=== PATIENT | male | born 1970 | race Hispanic/Latino ===

== ENCOUNTER → 2018-06-15 | Outpatient (CLI) | payer OTHER ==
[~2018-06-15] MED LIST: ALLO100T PO; ASPI-1197 PO; CARV3.12 PO; CHOL100040 PO; EZET1TAB21 PO; METF-444 PO; NIAC500T7 PO; OLME20TA10 PO
== END | disposition home or self-care (01) ==
LOC: RAH 09:03
PROVIDERS: ATTEND Physical Medicine & Rehabilitation
DX: M51.15 Intervertebral disc disorders with radiculopathy, thoracolumbar region (principal); M48.061 Spinal stenosis, lumbar region without neurogenic claudication
CPT/HCPCS: 72148

== ENCOUNTER → 2018-06-18 | Outpatient (CLI) | payer OTHER | END | disposition home or self-care (01) | LOC: OIH 16:06 | PROVIDERS: ATTEND Family Medicine | DX: I10 Essential (primary) hypertension (principal) | CPT/HCPCS: 71046 ==

== ENCOUNTER → 2018-08-11 | Outpatient (CLI) | payer OTHER | END | disposition home or self-care (01) | LOC: RAH 13:03 | PROVIDERS: ATTEND Physical Medicine & Rehabilitation | DX: M16.12 Unilateral primary osteoarthritis, left hip (principal) | CPT/HCPCS: 73721 ==

== ENCOUNTER → 2019-05-31 | Outpatient (CLI) | payer OTHER ==
[~2019-05-31] MED LIST changes: +GADODIAMIDE 10 MMOL/20 ML VIAL IV ONE
== END | disposition home or self-care (01) ==
LOC: RAH 13:39
PROVIDERS: ATTEND Physical Medicine & Rehabilitation
DX: M48.02 Spinal stenosis, cervical region (principal); M25.78 Osteophyte, vertebrae; M50.11 Cervical disc disorder with radiculopathy, high cervical region; Z98.1 Arthrodesis status
CPT/HCPCS: 72156; A9579

== ENCOUNTER → 2020-11-21 | Outpatient (CLI) | payer OTHER ==
[~2020-11-21] MED LIST changes: -GADODIAMIDE 10 MMOL/20 ML VIAL IV ONE
== END | disposition home or self-care (01) ==
LOC: RAH 14:46
PROVIDERS: ATTEND Physical Medicine & Rehabilitation
DX: M47.814 Spondylosis without myelopathy or radiculopathy, thoracic region (principal); M25.78 Osteophyte, vertebrae; M85.88 Other specified disorders of bone density and structure, other site
CPT/HCPCS: 72040; 72074

== ENCOUNTER → 2021-01-15 | Outpatient (CLI) | payer OTHER | END | disposition home or self-care (01) | LOC: RAH 10:06 | PROVIDERS: ATTEND Physical Medicine & Rehabilitation | DX: R13.10 Dysphagia, unspecified (principal) | CPT/HCPCS: 74230; 92611 ==

== ENCOUNTER → 2021-01-31 | Outpatient (CLI) | payer OTHER ==
[~2021-01-31] MED LIST changes: +GADOTERATE MEGLUMINE 10 MMOL/20 ML VIAL IV ONE
== END | disposition home or self-care (01) ==
LOC: RAH 14:40
PROVIDERS: ATTEND Physical Medicine & Rehabilitation
DX: M43.22 Fusion of spine, cervical region (principal); M47.22 Other spondylosis with radiculopathy, cervical region; M48.02 Spinal stenosis, cervical region; M25.78 Osteophyte, vertebrae
CPT/HCPCS: 72156; A9575

== ENCOUNTER → 2021-10-17 | Outpatient (CLI) | payer OTHER ==
[~2021-10-17] MED LIST changes: -GADOTERATE MEGLUMINE 10 MMOL/20 ML VIAL IV ONE
== END | disposition home or self-care (01) ==
LOC: RAH 10:13
PROVIDERS: ATTEND Physical Medicine & Rehabilitation
DX: K22.4 Dyskinesia of esophagus (principal); R13.19 Other dysphagia
CPT/HCPCS: 74230; 92611

== ENCOUNTER → 2023-11-20 | Outpatient (CLI) | payer OTHER ==
[~2023-11-20] MED LIST changes: +EZET-82 PO; -EZET1TAB21 PO; -OLME20TA10 PO; +OLME20TA73 PO
== END | disposition home or self-care (01) ==
LOC: RAH 13:31
PROVIDERS: ATTEND Anesthesiology Pain Medicine
DX: M47.816 Spondylosis without myelopathy or radiculopathy, lumbar region (principal); M47.892 Other spondylosis, cervical region; M51.16 Intervertebral disc disorders with radiculopathy, lumbar region; M48.061 Spinal stenosis, lumbar region without neurogenic claudication; M43.22 Fusion of spine, cervical region; M25.78 Osteophyte, vertebrae; M48.02 Spinal stenosis, cervical region
CPT/HCPCS: 72141; 72146; 72148

== ENCOUNTER 2024-07-18 21:17 | Emergency (ER) | payer OTHER ==
[~2024-07-18] VITALS: Ht 172.7 cm; Wt 95.7 kg
[~2024-07-18 21:17] MED LIST changes: +ATOR-2 PO; +BACL10TA PO; +LEVO5TAB13 PO; +MELO-106 PO; -NIAC500T7 PO; -OLME20TA73 PO; +TIRZ5PEN SQ; +TRAM50TA4 PO
[2024-07-18 22:01] LABS: BASOPHILS # (AUTO) 0.04 K/uL (0.00-0.20); BASOPHILS % (AUTO) 0.5 % (0.0-5.0); EOSINOPHILS # (AUTO) 0.07 K/uL (0.00-0.70); EOSINOPHILS % (AUTO) 0.8 % (0.0-8.0); HEMATOCRIT 35.6 % (42-54); IMMATURE GRANULOCYTE ABSOLUTE 0.04 K/uL (0-1); LYMPHOCYTES # (AUTO) 1.2 K/uL (1.0-4.8); LYMPHOCYTES % (AUTO) 14.3 % (21.0-51.0); MEAN CORPUSCULAR HEMOGLOBIN 29.3 pg (27.0-33.0); MEAN CORPUSCULAR HGB CONC 32.3 g/dL (32.0-36.0); MEAN CORPUSCULAR VOLUME 90.8 fL (79-99); MONOCYTES # (AUTO) 0.8 K/uL (0.1-1.0); NEUTROPHILS # (AUTO) 6.4 K/uL (1.8-7.7); NEUTROPHILS % (AUTO) 74.9 % (40.0-77.0); PLATELET COUNT (AUTO) 225 K/uL (130-400); RED BLOOD CELL COUNT(AUTO) 3.92 MIL/uL (4.50-6.20); RED CELL DISTRIBUTION WIDTH 13.8 % (11.0-15.5); WHITE BLOOD COUNT (AUTO) 8.6 K/uL (4.8-10.8)
[2024-07-18] MEDS: ondanSETRON 4MG INJ IVP ONE (22:06)
[2024-07-18] MEDS: 0.9%NACL 1000ML 1,000 ML IV ONE (22:06)
[2024-07-18] MEDS: hydroMORPHone 1 MG INJ IVP ONE (22:06)
[2024-07-18] MEDS: ketOROlac 30MG VIAL (30MG/ML) IVP ONE (22:06)
[2024-07-18 22:17] LABS: CREATININE 1.7 mg/dL (0.5-1.3)
--- NOTE | 2024-07-18 22:44 | HMCIMG ---
CT ABDOMEN/PELVIS W/O CONTRAST HISTORY: Renal stone COMPARISON: 06/27/2024 TECHNIQUE: Multiple sequential axial images of the abdomen and pelvis were obtained from the dome of the diaphragm through symphysis pubis. Patient was not given contrast through intravenous route. Oral contrast was not given. FINDINGS: No pleural effusion is seen bilaterally. There is no evidence of parenchymal disease or pulmonary nodule of the visualized lower lungs. Degenerative changes of the thoracolumbar spine are present. The heart is not enlarged. Liver measures 15 cm. Fatty changes of the liver are noted. Gallbladder is contracted. A small hiatal hernia is seen. The liver, spleen, adrenal glands and pancreas are unremarkable. No hydronephrosis is on the left. There is right hydronephrosis and right hydroureter with 3 mm renal stone in the right UV junction. Tiny bilateral renal pelvic stones are seen with the largest in the left renal pelvis measuring 5.7 mm. Fecal material is seen in the colon. There are normal size retroperitoneal and mesenteric lymph nodes. No ascites is seen. No CT evidence of acute appendicitis is seen. Pelvic sidewalls are symmetric bilaterally. Bladder is moderately distended. IMPRESSION: 1. There is right hydronephrosis and right hydroureter with 3 mm renal stone in the right UV junction. Tiny bilateral renal pelvic stones are seen with the largest in the left renal pelvis measuring 5.[address] was performed with one or more following dose reduction techniques: automated exposure control, adjustment of the mA and kv according to patient's size, or use of a iterative reconstruction technique.
[2024-07-18 22:46] LABS: APPEARANCE,URINE CLEAR (CLEAR); BILIRUBIN,URINE NEGATIVE (NEGATIVE); COLOR,URINE LIGHT-YELLOW (YELLOW); GLUCOSE, URINE (UA) NEGATIVE (NEGATIVE); KETONES,URINE 10 mg/dL (NEGATIVE); LEUKOCYTE ESTERASE ,URINE NEGATIVE Leu/uL (NEGATIVE); NITRATE,URINE NEGATIVE (NEGATIVE); OCCULT BLOOD,URINE NEGATIVE (NEGATIVE); PROTEIN,URINE 20 mg/dL (NEGATIVE); UROBILINOGEN,URINE 0.2 mg/dL (0.2-1.0)
[2024-07-18 22:48] LABS: ADD UA MICROSCOPIC YES
[2024-07-18 22:57] LABS: BACTERIA,URINE MOD /HPF (None Seen); MUCUS,URINE RARE LPF (None Seen); RBC,URINE 0-1 /HPF (0-1); SQUAMOUS EPITHELIAL CELL,UR RARE /HPF (0-2); WBC,URINE 0-1 /HPF (0-1)
[2024-07-18] MEDS: tamSULOsin HCL 0.4 MG CAP.ER.24H PO ONE (23:24)
--- NOTE | 2024-07-18 23:37 | ERN ---
ED Note History of Present Illness Stated Complaint: C/O RT LOWER BACK PAIN RADIATING TO LOWER ABD Chief Complaint: Back Pain-No Injury Time Seen by MD: 21:22 Time Seen by Midlevel: 21:22 Dictation: The patient is a 53-year-old male status post CABG 06/07/2024 , CAD, diabetes who presents to the emergency department with complaints of right flank pain radiating to the right lower abd associated with nausea onset yesterday. Patients reports hematuria and painful urination yesterday. Patient denies any vomiting, constipation, fevers. Denies any chest pain or shortness of breath. Allergies: Coded Allergies: Penicillins (Unverified Allergy, Unknown, HIVES, 10/26/15) Home Meds Reported Medications Baclofen (Baclofen) 10 Mg Tablet, 1 TAB PO BID 06/02/24 Meloxicam (Meloxicam) 7.5 Mg Tablet, 1 TAB PO BID for pain 06/02/24 Tramadol Hcl (Tramadol HCl) 50 Mg Tablet, 1 TAB PO TIDP PRN for PAIN 06/02/24 Levocetirizine Dihydrochloride (Levocetirizine Dihydrochloride) 5 Mg Tablet, 1 TAB PO DAILY 06/02/24 Tirzepatide (Mounjaro) 5 Mg/0.5 Ml Pen.injctr, 5 MG SQ QWEEK 06/02/24 Atorvastatin Calcium (Atorvastatin Calcium) 80 Mg Tablet, 1 TAB PO DAILY 06/02/24 Aspirin (Aspirin) 81 Mg Tab.chew, 81 MG PO AM, TAB.CHEW 10/26/15 Cholecalciferol (Vitamin D3) (Vitamin D3) 1,000 Unit Capsule, 1000 UNIT PO AM, CAP 10/26/15 Allopurinol (Allopurinol) 100 Mg Tablet, 100 MG PO AM, TAB 10/26/15 Ezetimibe/Simvastatin (Vytorin 10-40 mg Tablet) 1 Each Tablet, 1 EACH PO PM, TAB 10/26/15 Carvedilol (Carvedilol) 3.125 Mg Tablet, 3.125 MG PO BID, TAB 10/26/15 Metformin HCl (Metformin HCl) 500 Mg Tablet, 500 MG PO BID, TAB 10/26/15 Past Medical History Past Medical History: Diabetes-Type II, High Cholesterol, Heart Disease, Hyper tension Surgical History: CABG, Other Surgical History Other: CARDIAC STENTS RN Note Reviewed/Agreed w/PFSH: Yes Review of System Dictation Constitutional: Negative for fever,chills, and weight loss Eyes: Negative for injury, pain,redness, and discharge ENT: Negative for injury,pain or swelling Cardiovascular: Negative for chest pain, palpitations, and edema Respiratory: Negative for shortness of breath, cough, and wheezing, Abdomen/GI: Negative for vomiting, diarrhea, and constipation positive for right lower abdominal pain, nausea Back: Negative for injury and pain positive for right flank pain : Negative for injury, bleeding and discharge MS/Extremity: Negative for injury and deformity Skin: Negative for rash, and discoloration Neuro: Negative for headache, weakness, numbness, tingling, and seizure Psych: Negative for suicide ideation, homicidal ideation, and hallucinations Initial Vital Sign VS Vital Signs Date Time Temp Pulse Resp B/P (MAP) Pulse Ox O2 Delivery O2 Flow Rate FiO2 07/18/24 21:20 98.6 90 20 146/78 99 Room Air 07/18/24 22:22 0 21 Physical Exam Dictation Vital Signs reviewed General Appearance: Alert, oriented x 3, no acute distress, well developed, nourished. Head and Face: non-traumatic. Eyes: PERRL, pink conjunctivas, eyelid no trauma, anterior chamber with arcus senilis. Ears: Pinnas intact and no signs of trauma or erythema ear canals clear and no discharge TM no erythema Nose: No discharge, no bleeding. Oropharynx: Mouth normal, tongue pink. pharynx clear,no erythema, tonsils no exudates, no abscesses noted, mucous membrane moist Neck: Supple, non-tender, no thyromegaly, no masses, no JVD, no bruits Breast:Deferred Chest:No tenderness, no crepitus, no paradoxical movement, no retractions Lungs:Clear, well-ventilated, symmetric, no rales, no wheezing, no rhonchi, no stridor, good breath sounds bilaterally Heart: Regular rate, regular rhythm, no murmur, no gallops Vascular: no peripheral edema, Abdomen: Soft, positive bowel sounds, nondistended, no guarding, nontender, no rebound, no masses no hepatomegaly, no splenomegaly, no Lima's sign, no hernias. Rectal: Deferred Genital: Deferred Neurological: Normal speech, motor function intact, sensory function intact Musculoskeletal: Neck nontender, full range of motion, back nontender, full range of motion, Extremities: nontender, full range of motion Skin: Color pink, dry, no turgor, no rash, no lacerations, no abrasions, no contusions. Lymphatic: Deferred Results (Laboratory/Radiology) Laboratory/Radiology Laboratory Tests Test 07/18/24 21:30 07/18/24 22:20 White Blood Count 8.6 K/uL (4.8-10.8) Red Blood Count 3.92 MIL/uL (4.50-6.20) L Hemoglobin 11.5 g/dL (14.0-18.0) L Hematocrit 35.6 % (42-54) L Mean Corpuscular Volume 90.8 fL (79-99) Mean Corpuscular Hemoglobin 29.3 pg (27.0-33.0) Mean Corpuscular Hemoglobin Concent 32.3 g/dL (32.0-36.0) Red Cell Distribution Width 13.8 % (11.0-15.5) Platelet Count 225 K/uL (130-400) Mean Platelet Volume 9.3 fL (7.5-10.5) Immature Granulocyte % (Auto) 0.5 % (0-1) Neutrophils (%) (Auto) 74.9 % (40.0-77.0) Lymphocytes (%) (Auto) 14.3 % (21.0-51.0) L Monocytes (%) (Auto) 9.0 % (3.0-13.0) Eosinophils (%) (Auto) 0.8 % (0.0-8.0) Basophils (%) (Auto) 0.5 % (0.0-5.0) Neutrophils # (Auto) 6.4 K/uL (1.8-7.7) Lymphocytes # (Auto) 1.2 K/uL (1.0-4.8) Monocytes # (Auto) 0.8 K/uL (0.1-1.0) Eosinophils # (Auto) 0.07 K/uL (0.00-0.70) Basophils # (Auto) 0.04 K/uL (0.00-0.20) Absolute Immature Granulocyte (auto 0.04 K/uL (0-1) Nucleated Red Blood Cells 0.0 % (0.0-0.19) Sodium Level 138 mmol/L (136-145) Potassium Level 4.0 mmol/L (3.5-5.1) Chloride Level 102 mmol/L (101-111) Carbon Dioxide Level 28 mmol/L (21-32) Blood Urea Nitrogen 18 mg/dL (7-18) Creatinine 1.7 mg/dL (0.5-1.3) H Glomerular Filtration Rate Calc 47 mL/min (>90) Random Glucose 121 mg/dL (70-105) H Total Calcium 9.2 mg/dL (8.5-10.1) Urine Color LIGHT-YELLOW (YELLOW) Urine Appearance CLEAR (CLEAR) Urine pH 5.0 (5.0-8.0) Urine Specific [place] 1.024 (1.001-1.031) Urine Protein 20 mg/dL (NEGATIVE) H Urine Glucose (UA) NEGATIVE mg/dL (NEGATIVE) Urine Ketones 10 mg/dL (NEGATIVE) H Urine Occult Blood NEGATIVE (NEGATIVE) Urine Nitrate NEGATIVE (NEGATIVE) Urine Bilirubin NEGATIVE mg/dL (NEGATIVE) Urine Urobilinogen 0.2 mg/dL (0.2-1.0) Urine Leukocyte Esterase NEGATIVE Jami/uL Urine RBC 0-1 /HPF (0-1) Urine WBC 0-1 /HPF (0-1) Urine Squamous Epithelial Cells RARE /HPF (0-2) Urine Bacteria MOD /HPF (None Seen) REASON: R/O KIDNEY STONES, right flank pain ORDERING PHYSICIAN: BITA [employer] PROCEDURE: ABD PEL WO - CT ABDOMEN/PELVIS W/O CONTRAST CT ABDOMEN/PELVIS W/O CONTRAST HISTORY: Renal stone COMPARISON: 06/27/2024 TECHNIQUE: Multiple sequential axial images of the abdomen and pelvis were obtained from the dome of the diaphragm through symphysis pubis. Patient was not given contrast through intravenous route. Oral contrast was not given. FINDINGS: No pleural effusion is seen bilaterally. There is no evidence of parenchymal disease or pulmonary nodule of the visualized lower lungs. Degenerative changes of the thoracolumbar spine are present. The heart is not enlarged. Liver measures 15 cm. Fatty changes of the liver are noted. Gallbladder is contracted. A small hiatal hernia is seen. The liver, spleen, adrenal glands and pancreas are unremarkable. No hydronephrosis is on the left. There is right hydronephrosis and right hydroureter with 3 mm renal stone in the right UV junction. Tiny bilateral renal pelvic stones are seen with the largest in the left renal pelvis measuring 5.7 mm. Fecal material is seen in the colon. There are normal size retroperitoneal and mesenteric lymph nodes. No ascites is seen. No CT evidence of acute appendicitis is seen. Pelvic sidewalls are symmetric bilaterally. Bladder is moderately distended. IMPRESSION: 1. There is right hydronephrosis and right hydroureter with 3 mm renal stone in the right UV junction. Tiny bilateral renal pelvic stones are seen with the largest in the left renal pelvis measuring 5.[address] was performed with one or more following dose reduction techniques: automated exposure control, adjustment of the mA and kv according to patient's size, or use of a iterative reconstruction technique. Labs Reviewed?: Yes ED Course ED Course Orders Procedure Category Date Status Time Cbc With Differential LAB 07/18/24 Complete 21:39 Urinalysis Profile LAB 07/18/24 Complete 21:39 Ct Abdomen/Pelvis W/O CT 07/18/24 Resulted Contrast 21:39 0.9%Nacl 1000ml (Ns PHA 07/18/24 In Process 1000ml) 22:00 Ketorolac PHA 07/18/24 Complete Tromethamine 30mg/Ml 22:00 Hydromorphone 1 Mg PHA 07/18/24 Complete Inj (Dilaudid 1mg Inj 22:00 Ondansetron 4mg Inj PHA 07/18/24 Complete (Zofran 4mg Inj) 22:00 Basic Metabolic Panel LAB 07/18/24 Complete 21:39 Tamsulosin Hcl PHA 07/18/24 Complete (Flomax) 23:30 Current Medications Medications (Trade) Dose Ordered Sig/Emeli Route PRN Reason Start Time Stop Time Status Last Admin Dose Admin Hydromorphone HCl (DiLAUDid 1MG INJ) 1 mg ONCE ONCE IVP 07/18/24 22:00 07/18/24 22:01 DC 07/18/24 22:06 Ketorolac Tromethamine (toRADol) 30 mg ONCE ONCE IVP 07/18/24 22:00 07/18/24 22:01 DC 07/18/24 22:06 Ondansetron HCl (zoFRAN 4MG INJ) 4 mg ONCE ONCE IVP 07/18/24 22:00 07/18/24 22:01 DC 07/18/24 22:06 Sodium Chloride 1,000 ml @ 250 mls/hr ONCE ONCE IV 07/18/24 22:00 07/19/24 01:59 07/18/24 22:06 Tamsulosin HCl (FloMAX) 0.4 mg ONCE ONCE PO 07/18/24 23:30 07/18/24 23:31 DC 07/18/24 23:24 Vital Signs Date Time Temp Pulse Resp B/P (MAP) Pulse Ox O2 Delivery O2 Flow Rate FiO2 07/18/24 23:15 98.6 86 18 136/69 99 Room Air* 0 21 07/18/24 22:22 86 18 144/86 98 Room Air* 0 21 07/18/24 21:20 98.6 90 20 146/78 99 Room Air Medical Decision Making MDM The patient is a 53-year-old male status post CABG 06/07/2024 , CAD, diabetes who presents to the emergency department with complaints of right flank pain radiating to the right lower abd associated with nausea onset yesterday. Patients reports hematuria and painful urination yesterday. Patient denies any vomiting, constipation, fevers. Denies any chest pain or shortness of breath. CBC showed no leukocytosis, normocytic anemia, chemistry showed creatinine of 1.7, GFR of 47, patient received a 1 L of fluids in ER. Urinalysis with no signs of UTI. CT abdomen and pelvis revealed a a right side hydronephrosis and right hydroureter old with3 mm renal stone in the right UV junction. Bilateral renal pelvic stones or seen the largest measuring 5.7 mm . Patient at time of reassessment is no longer having any pain. Patient reports he has prescriptions for meloxicam, tramadol, baclofen at home We will be discharged to follow up with PCP and urologist. Labs and imaging discussed with the patient who agrees to be discharged and follow up. Differential diagnosis: Appendicitis, UTI, pyelonephritis, back strain, electrolyte imbalance, kidney stone Need for hospitalization: Patient does not meet criteria for hospitalization. There are no social concerns with this patient. DX & DISP Disposition: Discharge Departure Impression: Primary Impression: Kidney stones Additional Impressions: Hydronephrosis, right, Acute kidney injury, Anemia, Right flank pain Condition: Stable Scripts Tamsulosin HCl (Flomax) 0.4 Mg Cap.er.24h 0.4 MG PO DAILY, #30 CAPSULE.DR Prov: BITA WADEP 07/18/24 Additional Instructions: Please follow up with PCP in 1-2 days. Please follow up with urologist as soon as possible. Take medications as prescribed. If symptoms worsen please return to ER. FOLLOW-UP WITH PRIMARY CARE PROVIDER IN 1 TO 2 DAYS. TAKE MEDICATIONS DIRECTED HERE IN THE EMERGENCY ROOM. OKAY TO CONTINUE HOME MEDICATIONS UNLESS OTHERWISE DISCUSSED DURING YOUR VISIT IN THE EMERGENCY ROOM TODAY. RETURN TO YOUR NEAREST EMERGENCY ROOM IF SYMPTOMS WORSEN OR IF THERE IS NO IMPROVEMENT. CALL 911 IF YOU NEED IMMEDIATE ASSISTANCE. TAKE TYLENOL OR MOTRIN [id number] NEEDED AND IF NO CONTRAINDICATIONS ARE PRESENT. INCREASE ORAL HYDRATION. A WOUND CULTURE OR URINE CULTURE WAS ORDERED HERE IN THE EMERGENCY ROOM DEPARTMENT PLEASE FOLLOW-UP WITH PRIMARY CARE PROVIDER AND ADVISE THEM TO GET REPEAT PORTS FROM OUR FACILITY. IF YOU HAD ANY JOSE LUIS WRAP/SPLINTS THAT WERE APPLIED HERE, PLEASE DO NOT REMOVE THEM UNTIL YOU SEE YOUR PRIMARY CARE OR SPECIALTY. Referrals: SHARLA CULLEN MD (PCP) CHUCKY CORRAL MD Time of Disposition: 23:42 I have reviewed the case, and I agree with, Diagnosis and Plan BITA [employer] Jul 18, 2024 23:37
[2024-07-18] MEDS ORDERED: TAMS-1 PO (23:44)
[2024-07-19] VITALS: BP 136/71; PULSE 86; RESP 18; TEMP 98.6; O2SAT 99
== END 2024-07-19 00:04 | disposition home or self-care (01) ==
LOC: EDH 21:17
DX: N13.2 Hydronephrosis with renal and ureteral calculous obstruction (principal); N17.9 Acute kidney failure, unspecified; D64.9 Anemia, unspecified; E11.9 Type 2 diabetes mellitus without complications; E78.00 Pure hypercholesterolemia, unspecified; I10 Essential (primary) hypertension; Z79.84 Long term (current) use of oral hypoglycemic drugs; Z79.85 Long-term (current) use of injectable non-insulin antidiabetic drugs; Z79.899 Other long term (current) drug therapy; Z88.0 Allergy status to penicillin; Z95.1 Presence of aortocoronary bypass graft; Z95.5 Presence of coronary angioplasty implant and graft
CPT/HCPCS: 99285; 74176; 96374; 96375; 96361; 80048; 85025; 81001; 36415; J1171; J7030; J2405; J1885

== ENCOUNTER → 2024-09-13 | Outpatient (CLI) | payer OTHER ==
[~2024-09-13] MED LIST changes: +TAMS-1 PO
--- NOTE | 2024-09-16 11:56 | HMCIMG ---
RIBS UNILAT 2V RT HISTORY: Chest pain COMPARISON: None TECHNIQUE: 5 images of right ribs were obtained. FINDINGS: There is no acute displaced fracture or dislocation. Degenerative changes are seen. Poststernotomy changes are seen. IMPRESSION: 1. Findings as described above.
--- NOTE | 2024-09-16 11:57 | HMCIMG ---
CERV SPINE 2-3VWS HISTORY: Neck pain COMPARISON: None FINDINGS: 4 images of cervical spine were obtained. Orthopedic fixation plates and screws are seen traversing the C5-C6 with disc fusion. There are degenerative changes with cervical spine spondylosis. There is straightening of normal lordotic curvature which may be related to muscle spasm or positioning. No loss of vertebral height is seen. No fracture or dislocation is seen. Degenerative changes are seen. IMPRESSION: 1. No fracture is seen. DJD with postop changes.
== END | disposition home or self-care (01) ==
LOC: RAH 14:08
PROVIDERS: ATTEND Internal Medicine Nephrology
DX: M47.812 Spondylosis without myelopathy or radiculopathy, cervical region (principal); M47.814 Spondylosis without myelopathy or radiculopathy, thoracic region; M54.2 Cervicalgia; R07.81 Pleurodynia
CPT/HCPCS: 71100; 72040

== ENCOUNTER → 2025-02-10 | Outpatient (CLI) | payer OTHER ==
[~2025-02-10] MED LIST changes: -MELO-106 PO; -TAMS-1 PO; +TAMS-55 PO
--- NOTE | 2025-02-10 16:09 | HMCIMG ---
CT ABDOMEN W/O CONTRAST HISTORY: Renal stone COMPARISON: 01/30/2025 TECHNIQUE: Multiple sequential axial images of the abdomen were obtained from the dome of the diaphragm through iliac crests. Patient was not given contrast through intravenous route. Oral contrast was not given. FINDINGS: No pleural effusion is seen bilaterally. There is no evidence of parenchymal disease or pulmonary nodule of the visualized lower lungs. Degenerative changes are seen of the thoracolumbar spine. The liver, spleen, adrenal glands and pancreas are unremarkable. There is no evidence of hydronephrosis bilaterally. No evidence of renal stone is seen. There is left percutaneous nephrostomy to. There is a simple left renal cyst measuring 3.5 cm. Fecal material is seen in the colon. There are normal-sized retroperitoneal and mesenteric lymph nodes. No ascites is seen. Atherosclerotic changes are present. IMPRESSION: 1. Left percutaneous nephrostomy tube. No definite hydronephrosis is seen. CT was performed with one or more following dose reduction techniques: automated exposure control, adjustment of the mA and kv according to patient's size, or use of a iterative reconstruction technique.
== END | disposition home or self-care (01) ==
LOC: RAH 08:24
PROVIDERS: ATTEND Internal Medicine Nephrology
DX: N20.0 Calculus of kidney (principal); M47.815 Spondylosis without myelopathy or radiculopathy, thoracolumbar region
CPT/HCPCS: 74150